=== PATIENT | female | born 1955 | race Caucasian/White ===

== ENCOUNTER 2016-10-06 07:49 | Day surgery (SDC) | payer BC ==
[2016-10-04 14:40] VITALS: BMI 23.4
[~2016-10-06 07:49] MED LIST: LACTATED RINGERS 1,000 ML IV SCH
[2016-10-06 08:09] VITALS: TEMP 99
[2016-10-06] MEDS ORDERED: LIDOCAINE 1% 20 ML VIAL (10MG/ML) FOR IV START INTRADERMA ONE (08:13)
[2016-10-06] MEDS ORDERED: PROPOFOL 10 MG/ML 20 ML VIAL IV ONE (08:44)
--- NOTE | 2016-10-06 09:11 | P.PCN ---
Date of Procedure: 10/06/16 Preoperative Diagnosis: Postoperative Diagnosis: Procedure(s) Performed: BRIEF HISTORY: Patient is a 60-year-old pleasant female, scheduled for an elective colonoscopy as a part of screening for colorectal neoplasia. PROCEDURE PERFORMED: Colonoscopy. PREOPERATIVE DIAGNOSIS: Screening for colon cancer. IV sedation per Anesthesia. PROCEDURE: After informed consent was obtained, the patient, was brought into the endoscopy unit. IV sedation was administered by Anesthesia under continuous monitoring. Digital rectal examination was normal. Initially the Olympus CF- 160 flexible video colonoscope was then inserted in the rectum, gradually advanced into the cecum without any difficulty. Careful examination was performed as the scope was gradually being withdrawn. Ileocecal valve and the appendiceal orifice were visualized and appeared normal. Prep was excellent. Mucosa of the cecum, ascending colon, transverse colon, descending colon, sigmoid colon, and rectum appeared normal. Scattered sigmoidal diverticulosis seen. Retroflexion was performed in the rectum and no lesions were seen. The patient tolerated the procedure well. IMPRESSION: Normal-appearing colon from rectum to cecum with no evidence of colorectal neoplasia. Scattered sigmoid diverticulosis. RECOMMENDATIONS: Findings of this examination were discussed with the patient as well as a family. She was advised to have a repeat screening colonoscopy in 10 years. Implants: Indications for Procedure: Operative Findings: Description of Procedure:
[2016-10-06 09:26] VITALS: BP 137/74; PULSE 71; RESP 16
== END 2016-10-06 09:39 | disposition home or self-care (01) ==
LOC: ORWHC2ENDO 07:49
PROVIDERS: ATTEND Internal Medicine Gastroenterology
DX: Z12.11 Encounter for screening for malignant neoplasm of colon (principal); K57.30 Diverticulosis of large intestine without perforation or abscess without bleeding; I10 Essential (primary) hypertension; J45.909 Unspecified asthma, uncomplicated; F32.9 Major depressive disorder, single episode, unspecified; Z79.899 Other long term (current) drug therapy
CPT/HCPCS: J2704; G0121; 45378

== ENCOUNTER → 2017-01-01 | Outpatient (CLI) | payer BC ==
--- NOTE | 2017-01-01 19:59 | BD ---
EXAMINATION TYPE: MG DEXA axial skeleton. DATE OF EXAM: 01/01/2017 COMPARISON: NONE CLINICAL HISTORY: 61-year-old female postmenopausal screening without HRT Height: 59.5 IN Weight: 122 LBS FRAX RISK QUESTIONS: Alcohol (3 or more units per day): NO Family History (Parent hip fracture): NO Glucocorticoids (More than 3mos): NO (Ex: prednisone, prednisolone, methylprednisolone, dexamethasone, and hydrocortisone). History of Fracture in Adulthood: NO Secondary Osteoporosis: 1. Type 1 Diabetes: NO 2. Hyperthyroidism: NO 3. Menopause before 45: YES AGE 37 4. Malnutrition: NO 5. Chronic liver disease: NO Rheumatoid Arthritis: NO Current Tobacco Use: NO RISK FACTORS HISTORY OF: Active: YES Diet low in dairy products/other sources of calcium: YES Postmenopausal woman: AGE 37 MEDICATIONS: Additional Medications: CALAN, INHALERS ADVAIR AND PROAIR, CELEXA, EXAM MEASUREMENTS: Bone mineral densitometry was performed using the [email or web address] System. Bone mineral density as measured about the Lumbar spine is: ----- L1-L4(G/cm2): 1.126 T Score Values are as follows: ----- L2: -0.5 ----- L3: -0.7 ----- L4: -0.2 ----- L1-L4: -0.4 Bone mineral density BASELINE Bone mineral density about the R hip (g/cm2): 0.709 Bone mineral density about the L hip (g/cm2): 0.715 T Score values are as follows: -----R Neck: -2.4 -----L Neck: -2.3 -----R Total: -2.1 -----L Total: -1.7 Bone mineral density BASELINE IMPRESSION: Osteopenia (T Score between -2.5 and -1 as noted by T score values There is slightly increased risk of fracture and the patient may be considered for treatment. Re-Screen 2-5 years. NOTE: T-SCORE=SD OF THE YOUNG ADULT MEAN.
--- NOTE | 2017-01-03 09:50 | MM ---
Reason for exam: screening (asymptomatic). Last mammogram was performed 1 year and 2 months ago. History: Patient is postmenopausal. Benign right mammotome panel of the right breast, November 04, 2004. Benign stereotactic core biopsy of the left breast, September 01, 2002. Took hormonal contraceptives for 10 years. Physical Findings: A clinical breast exam by your physician is recommended on an annual basis and results should be correlated with mammographic findings. MG Screening Mammo w CAD Bilateral CC and MLO view(s) were taken. Prior study comparison: November 15, 2015, bilateral MG screening mammo w CAD. October 27, 2014, bilateral MG screening mammo w CAD. The breast tissue is heterogeneously dense. This may lower the sensitivity of mammography. Previous mammotome biopsy in the right and left breast. There is chronic nodularity in the left breast. Regional calcifications 8 o'clock right with clip are unchanged. Course calcifications just anteriorly are increasing. ASSESSMENT: Incomplete: need additional imaging evaluation, BI-RAD 0 RECOMMENDATION: Special view mammogram of the right breast. If lesion persists on supplemental views, image directed ultrasound is recommended. [facility] will attempt to contact patient to return for supplemental views and ultrasound if indicated.
== END | disposition home or self-care (01) ==
LOC: RADMAMWWP 13:51
PROVIDERS: ATTEND Internal Medicine
DX: Z12.31 Encounter for screening mammogram for malignant neoplasm of breast (principal); M85.852 Other specified disorders of bone density and structure, left thigh; M85.851 Other specified disorders of bone density and structure, right thigh
CPT/HCPCS: 77080; G0202

== ENCOUNTER → 2017-01-04 | Outpatient (CLI) | payer BC ==
--- NOTE | 2017-01-04 14:22 | MM ---
Reason for exam: additional evaluation requested from abnormal screening. Last mammogram was performed less than 1 month ago. History: Patient is postmenopausal. Benign right mammotome panel of the right breast, November 04, 2004. Benign stereotactic core biopsy of the left breast, September 01, 2002. Took hormonal contraceptives for 10 years. Physical Findings: Nurse did not find any significant physical abnormalities on exam. MG Work Up Mamm w CAD RT CC with magnification, ML with magnification, and ML view(s) were taken of the right breast. Prior study comparison: January 01, 2017, bilateral MG screening mammo w CAD. November 15, 2015, bilateral MG screening mammo w CAD. The breast tissue is heterogeneously dense. This may lower the sensitivity of mammography. Course and round loosely grouped calcifications in the upper outer quadrant were present to some extent back to 2010. The increasing calcifications have a similar morphology and a benign etiology is favored at this time. A 6 month follow up is recommended. These results were verbally communicated with the patient and result sheet given to the patient on 01/04/17. ASSESSMENT: Probably benign, BI-RAD 3 RECOMMENDATION: Follow-up diagnostic mammogram of the right breast in 6 months.
== END | disposition home or self-care (01) ==
LOC: RADMAMWWP 12:52
PROVIDERS: ATTEND Internal Medicine
DX: R92.8 Other abnormal and inconclusive findings on diagnostic imaging of breast (principal)

== ENCOUNTER → 2017-07-12 | Outpatient (CLI) | payer BC ==
--- NOTE | 2017-07-12 14:07 | MM ---
Reason for exam: follow-up at short interval from prior study. Last mammogram was performed 6 months ago. History: Patient is postmenopausal. Benign right mammotome panel of the right breast, November 04, 2004. Benign stereotactic core biopsy of the left breast, September 01, 2002. Took hormonal contraceptives for 10 years. Physical Findings: Nurse did not find any significant physical abnormalities on exam. MG Diagnostic Mammo RT w CAD CC and MLO view(s) were taken of the right breast. Prior study comparison: January 04, 2017, right breast MG work up mamm w CAD RT. January 01, 2017, bilateral MG screening mammo w CAD. The breast tissue is heterogeneously dense. This may lower the sensitivity of mammography. Stable scattered calcifications in the right breast. There is no discrete abnormality. No significant new findings when compared with previous films. These results were verbally communicated with the patient and result sheet given to the patient on 07/12/17. ASSESSMENT: Benign, BI-RAD 2 RECOMMENDATION: Return to routine screening mammogram schedule for both breasts. Back on schedule.
== END | disposition home or self-care (01) ==
LOC: RADMAMWWP 12:48
PROVIDERS: ATTEND Internal Medicine
DX: R92.8 Other abnormal and inconclusive findings on diagnostic imaging of breast (principal)
CPT/HCPCS: 77065

== ENCOUNTER → 2017-12-18 | Outpatient (CLI) | payer BC ==
[2017-12-18 09:56] LABS: HCT 44.1 % (34.0-46.0); HGB 14.4 gm/dL (11.4-16.0); MCH 32.8 pg (25.0-35.0); MCHC 32.7 g/dL (31.0-37.0); MCV 100.1 fL (80.0-100.0); Mean Platelet Volume 6.5; Platelet Count 210 k/uL (150-450); RBC 4.41 m/uL (3.80-5.40); RDW 11.9 % (11.5-15.5); WBC 6.5 k/uL (3.8-10.6)
[2017-12-18 17:44] LABS: Albumin 4.2 g/dL (3.80-4.90); Albumin/Globulin Ratio 1.62 (1.20-2.10); Calcium 8.9 mg/dL (8.7-10.3); Globulin 2.6 g/dL (2.1-3.7); LDL Cholesterol,Calculated 69.2 mg/dL (0.0-131.0); Potassium 4.4 mmol/L (3.5-5.5); Total Bilirubin 0.7 mg/dL (0.2-1.2); Total Protein 6.8 g/dL (6.2-8.2); VLDL Calculation 12.8 mg/dL (5.00-40.00)
== END | disposition home or self-care (01) ==
LOC: LABWHC1 09:12
PROVIDERS: ATTEND Internal Medicine
DX: I10 Essential (primary) hypertension (principal); E78.5 Hyperlipidemia, unspecified; J45.909 Unspecified asthma, uncomplicated
CPT/HCPCS: 36415; 80053; 80061; 85027

== ENCOUNTER → 2018-07-30 | Outpatient (CLI) | payer BC ==
[2018-07-30 16:36] LABS: African American GFR (CKD) 108.4 (60.0-200.0); Albumin 3.9 g/dL (3.80-4.90); Albumin/Globulin Ratio 1.34 (1.60-3.17); Anion Gap 9.8 mmol/L (4.00-12.00); BUN/Creat Ratio 12.86 Ratio (12.00-20.00); Calcium 9.1 mg/dL (8.7-10.3); Carbon Dioxide 24.2 mmol/L (21.6-31.8); Globulin 2.9 g/dL (1.6-3.3); Potassium 4.1 mmol/L (3.5-5.5); Total Bilirubin 0.8 mg/dL (0.3-1.2); Total Protein 6.8 g/dL (6.2-8.2)
== END | disposition home or self-care (01) ==
LOC: LABWHC1 08:54
PROVIDERS: ATTEND Internal Medicine
DX: E78.5 Hyperlipidemia, unspecified (principal); I10 Essential (primary) hypertension
CPT/HCPCS: 36415; 80053; 80061

== ENCOUNTER → 2018-09-11 | Outpatient (CLI) | payer BC ==
[2018-09-11 09:12] VITALS: BP 137/80; PULSE 74; RESP 16; TEMP 98.4; BMI 23.2
--- NOTE | 2018-09-11 09:58 | P.HPOB ---
History of Present Illness H&P Date: 09/11/18 Chief Complaint: The patient is here for her routine gynecologic exam and ma mmogram. This is a 62-year-old with an LMP of 1992. The patient is here to establish with this office. She previously sought Dr. Mattson for her exams. Her last pelvic exam was about 10 years ago. She is status post STEFAN LSO for benign reasons. She is without gynecologic complaints. She has not been sexually active for several years. Review of Systems The patient has lost 4 pounds over the last year. She denies respiratory, cardiac, or G.I. problems. Past Medical History Past Medical History: Asthma, Hypertension Additional Past Medical History / Comment(s): Sciatica and osteopenia. Seasonal allergies. PAST [employer] HISTORY: treated for chlamydia as a young adult. No other Hx of STDs. STEFAN LSO for endometriosis. History of Any Multi-Drug Resistant Organisms: None Reported Past Surgical History: Back Surgery, Hysterectomy Additional Past Surgical History / Comment(s): COLONOSCOPY 2019(2nd, next 10yrs). STEFAN LSO 1992. Multiple breast biopsies. Past Anesthesia/Blood Transfusion Reactions: No Reported Reaction Past Psychological History: Depression Smoking Status: Former smoker Past Alcohol Use History: Occasional Additional Past Alcohol Use History / Comment(s): QUIT SMOKING 1996 Past Drug Use History: None Reported Additional History: She is a and is not sexually active. 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 - Past Family History Brother(s) Family Medical History: Cancer Additional Family Medical History / Comment(s): Brain and liver cancer. Father Family Medical History: Myocardial Infarction ([place]) Mother Family Medical History: No Reported History Additional Family Medical History / Comment(s): Maternal grandfather had colon cancer. Maternal grandmother had ovarian cancer. Medications and Allergies Home Medications Medication Instructions Recorded Confirmed Type Albuterol Sulfate [Proair Hfa] 1 puff INHALATION DIRECTED PRN 12/27/13 09/11/18 History Fluticasone/Salmeterol [Advair 1 puff INHALATION BID 12/27/13 09/11/18 History 250-50 Diskus] Verapamil Sr [Isoptin Sr] 180 mg PO HS 12/27/13 09/11/18 History Citalopram Hydrobromide 20 mg PO DAILY 10/04/16 09/11/18 History [Citalopram HBr] Cetirizine HCl [Zyrtec] 10 mg PO DAILY 09/11/18 09/11/18 History Allergies Allergy/AdvReac Type Severity Reaction Status Date / Time No Known Allergies Allergy Verified 09/11/18 09:05 Exam Vital Signs Temp Pulse Resp BP Pulse Ox 09/11/18 09:07 98.4 F 74 16 137/80 96 Intake and Output 09/10/18 09/11/18 09/11/18 22:59 06:59 14:59 Other: Weight 53.977 kg Height 5'0", weight 119 pounds, BMI 23.2. This is a well-developed well-nourished white female who is alert and oriented times 3 in no acute distress. HEENT: Within normal limits. NECK: Supple without mass or thyromegaly. CHEST AND LUNGS: Clear to auscultation. HEART: Regular rate and rhythm. BREASTS: Are without mass or discharge. AXILLARY EXAM: Negative for adenopathy. BACK: Negative for CVA tenderness. ABDOMEN: Soft, nontender, without palpable masses. PELVIC EXAM: External genitalia appears normal with mild to moderate atrophy. Vagina appears normal with mild to moderate atrophy. There is no evidence of prolapse. Bimanual examination is negative for mass or tenderness. RECTAL EXAM: Rectovaginal exam is negative for mass or tenderness and is negative for occult blood. EXTREMITIES: Nontender. IMPRESSION: 1. 62-year-old menopausal female status post STEFAN LSO for benign reasons, with normal gynecologic exam. 2. History of osteopenia. PLAN: 1. Pap smears have been discontinued. 2. Self breast awareness was discussed with the patient. 3. Screening mammogram will be done today. 4. Osteoporosis prevention was discussed. I have stressed the importance of adequate calcium, vitamin D and regular exercise. Recommended amounts of calcium and vitamin D were also discussed. I reviewed her last bone density test with the patient done on 01/01/2017. We will plan on repeating the bone density testing in one year. 5. She was advised to return in one year for her annual well woman exam.
--- NOTE | 2018-09-12 10:19 | MM ---
Reason for exam: screening (asymptomatic). Last mammogram was performed 1 year and 2 months ago. History: Patient is postmenopausal. Benign right mammotome panel of the right breast, November 04, 2004. Benign stereotactic core biopsy of the left breast, September 01, 2002. Took hormonal contraceptives for 10 years. Physical Findings: A clinical breast exam by your physician is recommended on an annual basis and results should be correlated with mammographic findings. MG Screening Mammo w CAD Bilateral CC and MLO view(s) were taken. Prior study comparison: July 12, 2017, right breast MG diagnostic mammo RT w CAD. January 04, 2017, right breast MG work up mamm w CAD RT. The breast tissue is heterogeneously dense. This may lower the sensitivity of mammography. Finding #1: There is a 9 mm equal density (isodense), obscured mass in the upper outer quadrant of the left breast. Finding #2: There are typically benign calcifications in both breasts. Previous mammotome biopsy in the right and left breast. ASSESSMENT: Incomplete: need additional imaging evaluation, BI-RAD 0 RECOMMENDATION: Special view mammogram of the left breast. If lesion persists on supplemental views, image directed ultrasound is recommended. [facility] will attempt to contact patient to return for supplemental views and ultrasound if indicated.
== END | disposition home or self-care (01) ==
LOC: WWCWWP 08:35
PROVIDERS: ATTEND Obstetrics & Gynecology
DX: Z12.31 Encounter for screening mammogram for malignant neoplasm of breast (principal)
CPT/HCPCS: 77067

== ENCOUNTER → 2018-09-24 | Outpatient (CLI) | payer BC ==
--- NOTE | 2018-09-24 10:17 | MM ---
Reason for exam: additional evaluation requested from abnormal screening. Last mammogram was performed less than 1 month ago. History: Patient is postmenopausal. Benign right mammotome panel of the right breast, November 04, 2004. Benign stereotactic core biopsy of the left breast, September 01, 2002. Took hormonal contraceptives for 10 years. Physical Findings: Nurse did not find any significant physical abnormalities on exam. MG Work Up Mamm w CAD LT Spot compression CC, spot compression ML, and ML view(s) were taken of the left breast. Prior study comparison: September 11, 2018, bilateral MG screening mammo w CAD. July 12, 2017, right breast MG diagnostic mammo RT w CAD. The breast tissue is heterogeneously dense. This may lower the sensitivity of mammography. No distinct lesion persists on additional views. These results were verbally communicated with the patient and result sheet given to the patient on 09/24/18. ASSESSMENT: Benign, BI-RAD 2 RECOMMENDATION: Return to routine screening mammogram schedule for both breasts.
== END | disposition home or self-care (01) ==
LOC: RADMAMWWP 08:51
PROVIDERS: ATTEND Obstetrics & Gynecology
DX: R92.8 Other abnormal and inconclusive findings on diagnostic imaging of breast (principal)
CPT/HCPCS: 77065

== ENCOUNTER → 2019-10-20 | Outpatient (CLI) | payer BC ==
--- NOTE | 2019-10-21 19:25 | BD ---
EXAMINATION TYPE: Axial Bone Density DATE OF EXAM: 10/20/2019 COMPARISON: NONE CLINICAL HISTORY: 63-year-old female with disorder of bone. Postmenopausal screening Height: 5 FT Weight: 119 FRAX RISK QUESTIONS: Alcohol (3 or more units per day): NO Family History (Parent hip fracture): NO Glucocorticoids (More than 3mos): NO (Ex: prednisone, prednisolone, methylprednisolone, dexamethasone, and hydrocortisone). History of Fracture in Adulthood: NO Secondary Osteoporosis: 1. Type 1 Diabetes: NO 2. Hyperthyroidism: NO 3. Menopause before 45: YES 4. Malnutrition: NO 5. Chronic liver disease: NO Rheumatoid Arthritis: NO Current Tobacco Use: NO RISK FACTORS HISTORY OF: Family History of Osteoporosis: NO Active: YES Postmenopausal woman: PART HYST AGE 37 SYMPTOMS BEFORE AGE 46 MEDICATIONS: Additional Medications: BLOOD PRESSURE MEDS, ASTHMA MEDS Additional History: EXAM MEASUREMENTS: Bone mineral densitometry was performed using the [employer] System. Bone mineral density as measured about the Lumbar spine is: ----- L1-L4(G/cm2): 1.113 T Score Values are as follows: ----- L2: -0.8 ----- L3: -0.5 ----- L4: -0.2 ----- L1-L4: -0.6 Bone mineral density has: DECREASED -0.2 % since study of: 2016 Bone mineral density about the R hip (g/cm2): 0.670 Bone mineral density about the L hip (g/cm2): 0.689 T Score values are as follows: -----R Neck: -2.6 -----L Neck: -2.5 -----R Total: -2.3 -----L Total: -2.1 Bone mineral density has: DECREASED -4.8 % since study of: 2017 IMPRESSION: Osteoporosis (T Score less than -2.5). There is increased fracture risk and therapy is usually indicated based on age. Re-Screen 1-2 years. NOTE: T-SCORE=SD OF THE YOUNG ADULT MEAN.
--- NOTE | 2019-10-22 11:02 | MM ---
Reason for exam: screening (asymptomatic). Last mammogram was performed 1 year and 1 month ago. History: Patient is postmenopausal. Benign right mammotome panel of the right breast, November 04, 2004. Benign stereotactic core biopsy of the left breast, September 01, 2002. Took hormonal contraceptives for 10 years. Physical Findings: A clinical breast exam by your physician is recommended on an annual basis and results should be correlated with mammographic findings. MG 3D Screening Mammo W/Cad Bilateral CC and MLO view(s) were taken. Prior study comparison: September 24, 2018, left breast MG work up mamm w CAD LT. September 11, 2018, bilateral MG screening mammo w CAD. Previous mammotome biopsy in the left breast. There is chronic nodularity in the left breast. Stable grouped punctate calcifications with clip right upper outer quadrant and course dystrophic calcifications just anteriorly. Benign vascular calcifications bilaterally. No significant changes when compared with prior studies. ASSESSMENT: Benign, BI-RAD 2 RECOMMENDATION: Routine screening mammogram of both breasts in 1 year.
== END | disposition home or self-care (01) ==
LOC: RADMAMWWP 14:47
PROVIDERS: ATTEND Internal Medicine
DX: Z12.31 Encounter for screening mammogram for malignant neoplasm of breast (principal); M81.0 Age-related osteoporosis without current pathological fracture
CPT/HCPCS: 77063; 77067; 77080

== ENCOUNTER → 2020-12-03 | Outpatient (CLI) | payer BC ==
--- NOTE | 2020-12-07 08:08 | MM ---
Reason for exam: screening (asymptomatic). Last mammogram was performed 1 year and 1 month ago. History: Patient is postmenopausal. Benign right mammotome panel of the right breast, November 04, 2004. Benign stereotactic core biopsy of the left breast, September 01, 2002. Took hormonal contraceptives for 10 years. Physical Findings: A clinical breast exam by your physician is recommended on an annual basis and results should be correlated with mammographic findings. MG 3D Screening Mammo W/Cad Bilateral CC and MLO view(s) were taken. Prior study comparison: October 20, 2019, bilateral MG 3d screening mammo w/cad. September 24, 2018, left breast MG work up mamm w CAD LT. September 11, 2018, bilateral MG screening mammo w CAD. January 01, 2017, bilateral MG screening mammo w CAD. There are scattered fibroglandular densities. Previous mammotome biopsy in the left breast. Regional punctate calcifications redemonstrated lateral right breast with microclip from prior biopsy. Stable course calcifications anterior right breast. No significant changes when compared with prior studies. ASSESSMENT: Benign, BI-RAD 2 RECOMMENDATION: Routine screening mammogram of both breasts in 1 year.
== END | disposition home or self-care (01) ==
LOC: RADMAMWWP 15:02
PROVIDERS: ATTEND Internal Medicine
DX: Z12.31 Encounter for screening mammogram for malignant neoplasm of breast (principal)
CPT/HCPCS: 77063; 77067

== ENCOUNTER → 2021-06-18 | Outpatient (CLI) | payer BC ==
[2021-06-18 11:13] LABS: HCT 41.8 % (37.2-46.3); HGB 14.3 g/dL (12.0-15.0); MCH 33.5 pg (27.0-32.0); MCHC 34.2 g/dL (32.0-37.0); MCV 97.9 fL (80.0-97.0); Mean Platelet Volume 9.1 fL (9.5-12.2); NRBC Per 100 WBC 0 /100 WBCS (0.0-0.0); Platelet Count 205 X 10*3/uL (140-440); RBC 4.27 X 10*6/uL (4.10-5.20); RDW 11.7 % (11.5-14.5); WBC 7.88 X 10*3/uL (4.50-10.00)
[2021-06-18 11:39] LABS: ALT 59 U/L (8-44); AST 67 U/L (13-35); African American GFR (CKD) 111.6 (60.0-200.0); Albumin 4.1 g/dL (3.8-4.9); Albumin/Globulin Ratio 1.32 (1.60-3.17); Alkaline Phosphatase 77 U/L (41-126); BUN/Creat Ratio 13.17 Ratio (12.00-20.00); Blood Urea Nitrogen 7.9 mg/dL (9.0-27.0); Calcium 8.9 mg/dL (8.7-10.3); Carbon Dioxide 25.8 mmol/L (20.0-27.5); Chloride 105 mmol/L (96-109); Chol/HDL Ratio 1.82 Ratio; Globulin 3.1 g/dL (1.6-3.3); Glucose 105 mg/dL (70-110); LDL Cholesterol,Calculated 62.2 mg/dL (0.0-131.0); Non-African American GFR(CKD) 96.3 (60.0-200.0); Potassium 4.1 mmol/L (3.5-5.5); Sodium 141 mmol/L (135-145); Total Protein 7.2 g/dL (6.2-8.2); VLDL Calculation 14.04 mg/dL (5.00-40.00)
[2021-06-18 22:32] LABS: Appearance,Urine Clear (Clear); Bilirubin,Urine Negative (Negative); Blood,Urine Negative (Negative); Color,Urine Yellow (Yellow); Ketones,Urine Negative (Negative); Nitrite,Urine Negative (Negative); PH, Urine 8.5 (5.0-8.0); Specific Gravity,Urine 1.009 (1.001-1.030)
[2021-06-18 22:48] LABS: Bacteria,Urine Trace /HPF (None Seen)
== END | disposition home or self-care (01) ==
LOC: LABWHC1 09:05
PROVIDERS: ATTEND Internal Medicine
DX: I10 Essential (primary) hypertension (principal); F32.A Depression, unspecified; M81.0 Age-related osteoporosis without current pathological fracture
CPT/HCPCS: 36415; 80053; 80061; 81001; 82306; 84443; 85027

== ENCOUNTER → 2021-07-06 | Outpatient (CLI) | payer BC | END | disposition home or self-care (01) | LOC: LABWHC1 11:39 | PROVIDERS: ATTEND Internal Medicine | DX: R76.8 Other specified abnormal immunological findings in serum (principal) | CPT/HCPCS: 36415; 87522 ==

== ENCOUNTER → 2021-07-22 | Outpatient (CLI) | payer BC ==
--- NOTE | 2021-07-22 08:46 | US ---
EXAMINATION TYPE: US abdomen complete DATE OF EXAM: 07/22/2021 COMPARISON: NONE CLINICAL HISTORY: R79.89 OTHER SPECIFIED ABN FINDING OF BLOOD. Elevated LFT's EXAM MEASUREMENTS: Liver Length: 13.5 cm Gallbladder Wall: 0.2 cm CBD: 0.4 cm Spleen: 7.8 cm Right Kidney: 10.2 x 4.4 x 4.5 cm Left Kidney: 9.5 x 5.0 x 4.2 cm Pancreas: visualized portions wnl, limited by overlying midline bowel gas Liver: wnl Gallbladder: multiple stones seen with largest measuring 1.0cm Evidence for sonographic May's sign: no CBD: wnl Spleen: wnl Right Kidney: wnl Left Kidney: wnl Upper IVC: wnl Abd Aorta: wnl The liver is homogenous. The intrahepatic portion of the IVC and proximal abdominal aorta are within normal limits. There is no evidence of cholelithiasis. Common bile duct is unremarkable. The visu alized portions of the pancreas are homogenous. The spleen is unremarkable. Kidneys are symmetric a nd free of hydronephrosis. No renal lesions are seen. IMPRESSION: Multiple gallstones noted.
== END | disposition home or self-care (01) ==
LOC: RADUSWWP 07:59
PROVIDERS: ATTEND Internal Medicine
DX: K80.20 Calculus of gallbladder without cholecystitis without obstruction (principal)
CPT/HCPCS: 76700

== ENCOUNTER → 2021-10-06 | Outpatient (CLI) | payer BC ==
[2021-10-06 18:02] LABS: HCT 37.8 % (37.2-46.3); HGB 13.1 g/dL (12.0-15.0); MCH 33.6 pg (27.0-32.0); MCHC 34.7 g/dL (32.0-37.0); MCV 96.9 fL (80.0-97.0); NRBC Per 100 WBC 0 /100 WBCS (0.0-0.0); Platelet Count 186 X 10*3/uL (140-440); RDW 11.9 % (11.5-14.5); WBC 7.97 X 10*3/uL (4.50-10.00)
[2021-10-06 19:06] LABS: African American GFR (CKD) 111.6 (60.0-200.0); Albumin 4.1 g/dL (3.8-4.9); Albumin/Globulin Ratio 1.41 (1.60-3.17); Anion Gap 10.5 mmol/L (10.00-18.00); BUN/Creat Ratio 12.33 Ratio (12.00-20.00); Blood Urea Nitrogen 7.4 mg/dL (9.0-27.0); Calcium 8.9 mg/dL (8.7-10.3); Carbon Dioxide 23.5 mmol/L (20.0-27.5); Globulin 2.9 g/dL (1.6-3.3); Non-African American GFR(CKD) 96.3 (60.0-200.0); Potassium 3.9 mmol/L (3.5-5.5); Total Bilirubin 0.5 mg/dL (0.30-1.20)
== END | disposition home or self-care (01) ==
LOC: LABWHC1 10:50
PROVIDERS: ATTEND Internal Medicine Gastroenterology
DX: B18.2 Chronic viral hepatitis C (principal)
CPT/HCPCS: 36415; 80053; 82105; 85027; 87522

== ENCOUNTER → 2022-01-31 | Outpatient (CLI) | payer BC ==
[2022-01-31 19:41] LABS: Hepatitis C IgG Antibody Reactive (Nonreactive)
[2022-01-31 19:58] LABS: African American GFR (CKD) 105.4 (60.0-200.0); Albumin 4.3 g/dL (3.8-4.9); Albumin/Globulin Ratio 1.65 (1.60-3.17); Anion Gap 17.5 mmol/L (10.00-18.00); Blood Urea Nitrogen 12.6 mg/dL (9.0-27.0); Calcium 9.1 mg/dL (8.7-10.3); Carbon Dioxide 18.5 mmol/L (20.0-27.5); Globulin 2.6 g/dL (1.6-3.3); Non-African American GFR(CKD) 90.9 (60.0-200.0); Total Bilirubin 0.4 mg/dL (0.30-1.20); Total Protein 6.9 g/dL (6.2-8.2)
== END | disposition home or self-care (01) ==
LOC: LABWHC1 13:20
PROVIDERS: ATTEND Internal Medicine Gastroenterology
DX: B18.2 Chronic viral hepatitis C (principal)
CPT/HCPCS: 36415; 80053; 82105; 86803

== ENCOUNTER → 2022-02-09 | Outpatient (CLI) | payer BC ==
[2022-02-10 00:42] LABS: HCT 40.1 % (37.2-46.3); HGB 13.1 g/dL (12.0-15.0); MCH 32.8 pg (27.0-32.0); MCHC 32.7 g/dL (32.0-37.0); MCV 100.5 fL (80.0-97.0); Mean Platelet Volume 9.5 fL (9.5-12.2); NRBC Per 100 WBC 0 /100 WBCS (0.0-0.0); Platelet Count 204 X 10*3/uL (140-440); RBC 3.99 X 10*6/uL (4.10-5.20); WBC 8.51 X 10*3/uL (4.50-10.00)
== END | disposition home or self-care (01) ==
LOC: LABWHC1 14:25
PROVIDERS: ATTEND Nurse Practitioner Family
DX: B18.2 Chronic viral hepatitis C (principal)
CPT/HCPCS: 36415; 85027; 87522

== ENCOUNTER → 2022-04-22 | Outpatient (CLI) | payer BC ==
--- NOTE | 2022-04-24 10:49 | MR ---
EXAMINATION TYPE: MR lumbar spine wo con DATE OF EXAM: 04/22/2022 11:10 AM COMPARISON: None CLINICAL INDICATION:Female, 66 years old with history of M51.16 INTERVERTEBRAL DISC DISORDERS W RADIC ULOPAT; Low back pain, stiffness TECHNIQUE: Multi planar, multi sequence imaging was performed utilizing: T1-weighted, T2-weighted, a nd turbo inversion recovery imaging of the lumbar spine. IV Contrast: None. FINDINGS: Alignment: The lumbar vertebral bodies have preserved heights and alignment. Cord: The conus medullaris and the distal spinal cord appear unremarkable with regards to their signa l intensity and morphology. Bones/Discs: Bone signal is within normal limits. No abnormal bony edema on inversion recovery sequen evi. Multilevel degenerative disc disease is noted and most pronounced at the L3-L5. Intervertebral d isc signal is maintained. T11-T12: Left central disc protrusion without significant spinal canal or neural foramen stenosis. T12-L1: No evidence of significant spinal canal stenosis or neural foraminal stenosis. L1-L2: No evidence of significant spinal canal stenosis or neural foraminal stenosis. L2-L3: Disc bulge and facet joint arthropathy result in mild spinal canal and mild bilateral neural f oraminal stenosis. L3-L4: Disc bulge and facet joint arthropathy result in mild spinal canal and mild bilateral neural f oraminal stenosis. L4-L5: Disc bulge and facet joint arthropathy result in mild spinal canal and mild bilateral neural f oraminal stenosis. L5-S1: The disc is rounded posterior morphology without significant spinal canal stenosis. Facet join t arthropathy with mild left neural foraminal stenosis. Other findings: None. IMPRESSION: 1. No definitive evidence of significant spinal canal stenosis. 2. T11-T12 left central disc protrusion without significant spinal canal stenosis. Neural foramen ar e patent. 3. Mild disc degeneration with associated osteoarthritic changes.
== END | disposition home or self-care (01) ==
LOC: RADMRIMAIN 10:29
PROVIDERS: ATTEND Orthopaedic Surgery Orthopaedic Surgery of the Spine
DX: M51.16 Intervertebral disc disorders with radiculopathy, lumbar region (principal); M51.14 Intervertebral disc disorders with radiculopathy, thoracic region; M48.061 Spinal stenosis, lumbar region without neurogenic claudication; M47.26 Other spondylosis with radiculopathy, lumbar region; M50.322 Other cervical disc degeneration at C5-C6 level; M50.323 Other cervical disc degeneration at C6-C7 level; R53.1 Weakness
CPT/HCPCS: 72148

== ENCOUNTER → 2022-06-20 | Outpatient (CLI) | payer BC ==
--- NOTE | 2022-06-20 19:10 | BD ---
EXAMINATION TYPE: Axial Bone Density DATE OF EXAM: 06/20/2022 CLINICAL HISTORY: 66 years old Female. ICD-10 CODE: M81.0 AGE-RELATED OSTEOPOROSIS Height: 59.25 Weight: 113 FRAX RISK QUESTIONS: Family History (Parent hip fracture): no History of Fracture in Adulthood: no Secondary Osteoporosis: yes 3. Menopause before 45: yes Rheumatoid Arthritis: no RISK FACTORS HISTORY OF: Family History of Osteoporosis: no Active: yes Diet low in dairy products/other sources of calcium: yes Postmenopausal woman: no Lost more than 2 inches in height since high school: no Frequent falls: no Poor Health: no MEDICATIONS: Additional Medications: yes hbp, inhaler, EXAM MEASUREMENTS: Bone mineral densitometry was performed using the [employer] System. Bone mineral density as measured about the Lumbar spine is: ----- L1-L4(G/cm2): 1.171 T Score Values are as follows: ----- L1: -0.6 ----- L2: -0.6 ----- L3: -0.1 ----- L4: 0.7 ----- L1-L4: -0.1 Z Score Values are as follows: ----- L1: 1.5 ----- L2: 1.5 ----- L3: 1.9 ----- L4: 2.8 ----- L1-L4: 2.0 Bone mineral density has: Increased 5.2% since study of: 10/20/2019 Bone mineral density about the R hip (g/cm2): 0.783 Bone mineral density about the L hip (g/cm2): 0.767 T Score values are as follows: -----R Neck: -2.5 -----L Neck: -2.4 -----R Total: -1.8 -----L Total: -1.9 Z Score values are as follows: -----R Neck: -0.7 -----L Neck: -0.6 -----R Total: -0.2 -----L Total: -0.4 Bone mineral density has: Increased 5.3% since study of: 10/20/2019 FRAX%s: The graph provided illustrates a 12.8% chance for a major osteoporotic fx and a 2.9% chance f or the hips probability for fx in 10 years time. IMPRESSION: Osteoporosis (T Score less than -2.5). There is increased fracture risk and therapy is usually indicated based on age. Re-Screen 1-2 years. NOTE: T-SCORE=SD OF THE YOUNG ADULT MEAN.
== END | disposition home or self-care (01) ==
LOC: RADBDWWP 09:09
PROVIDERS: ATTEND Family Medicine
DX: M81.0 Age-related osteoporosis without current pathological fracture (principal); M85.89 Other specified disorders of bone density and structure, multiple sites; Z78.0 Asymptomatic menopausal state
CPT/HCPCS: 77080

== ENCOUNTER → 2022-08-01 | Outpatient (CLI) | payer BC ==
--- NOTE | 2022-08-01 15:04 | US ---
EXAMINATION TYPE: US venous doppler duplex LE LT DATE OF EXAM: 08/01/2022 2:54 PM COMPARISON: Prior US 2013. CLINICAL INDICATION: Female, 66 years old with history of I80.9 PHLEBITIS AND THROMBOPHLEBITIS; Pt st ates left leg pain and swelling SIDE PERFORMED: Left TECHNIQUE: The lower extremity deep venous system is examined utilizing real time linear array sonog bentley with graded compression, doppler sonography and color-flow sonography. VESSELS IMAGED: Common Femoral Vein Deep Femoral Vein Greater Saphenous Vein * Femoral Vein Popliteal Vein Small Saphenous Vein * Proximal Calf Veins (* superficial vessels) Left Leg: Negative for DVT Results called to Earlene at Dr's office at time of exam Grayscale, color doppler, spectral doppler imaging performed of the deep veins of the left lower extr emity. There is normal flow, compressibility, vascular waveforms. IMPRESSION: No US evidence for acute DVT in the left lower extremity. No significant change from pr ior US.
== END | disposition home or self-care (01) ==
LOC: RADUSWWP 14:30
PROVIDERS: ATTEND Orthopaedic Surgery
DX: I80.3 Phlebitis and thrombophlebitis of lower extremities, unspecified (principal); S83.92XD Sprain of unspecified site of left knee, subsequent encounter; M11.262 Other chondrocalcinosis, left knee; M17.12 Unilateral primary osteoarthritis, left knee; M23.307 Other meniscus derangements, unspecified meniscus, left knee; M23.8X2 Other internal derangements of left knee; R60.9 Edema, unspecified; X58.XXXD Exposure to other specified factors, subsequent encounter

== ENCOUNTER 2022-08-03 08:58 | Emergency (ER) | payer BC ==
[2022-08-03] MEDS ORDERED: KETOROLAC 15 MG/ML 1 ML VIAL IVP STA (09:26)
[2022-08-03] MEDS ORDERED: ONDANSETRON 4 MG/2 ML VIAL IVP STA (09:26)
[2022-08-03] MEDS ORDERED: HYDROmorphone 0.5 MG/0.5 ML SYRINGE IVP STA (09:26)
[2022-08-03 09:55] LABS: Basophils % (A) 0 %; Eosinophils # (A) 0.2 k/uL (0-0.7); Eosinophils % (A) 2 %; HCT 36.5 % (34.0-46.0); HGB 12.6 gm/dL (11.4-16.0); Lymphocytes # (A) 2.3 k/uL (1.0-4.8); Lymphocytes % (A) 24 %; MCH 32.8 pg (25.0-35.0); MCHC 34.5 g/dL (31.0-37.0); MCV 95.1 fL (80.0-100.0); Mean Platelet Volume 7.1; Monocytes % (A) 10 %; Neutrophils # (A) 6.1 k/uL (1.3-7.7); Neutrophils % (A) 61 %; Platelet Count 283 k/uL (150-450); RBC 3.84 m/uL (3.80-5.40); RDW 12.3 % (11.5-15.5); WBC 9.9 k/uL (3.8-10.6)
--- NOTE | 2022-08-03 10:00 | ED ---
Lower Extremity Injury HPI - General Chief Complaint: Extremity Injury, Lower Stated Complaint: Left leg swelling Time Seen by Provider: 08/03/22 09:01 Source: patient, RN notes reviewed Mode of arrival: wheelchair Limitations: no limitations - History of Present Illness Initial Comments: 66-year-old female presents emergency Department chief complaint of left leg pain and swelling. Patient's been having issues with her left leg and which she had a fall she did follow-up with orthopedics at a time she fell directly onto her left knee x-rays showed some arthritic changes. Patient was feeling better started having issues again patient went to Dr. mae was office a few days ago had repeat x-ray which is very similar did have the inspiration and which they state is clear and did not concerns for infection. Patient did have swelling of her left knee down her leg into her foot and ankle. She was sent for outpatient ultrasound which negative for DVT. Patient was plan worsening pain to her left foot and ankle she has constant pain but is worse with movement they did discuss possibility of pseudogout with orthopedics. Patient's had no f ever but complaint of some night sweats. Patient is here with family regarding some information. - Related Data Home Medications Medication Instructions Recorded Confirmed Albuterol Sulfate [Proair Hfa] 1 puff INHALATION DIRECTED PRN 12/27/13 09/11/18 Fluticasone Propion/Salmeterol 1 puff INHALATION BID 12/27/13 09/11/18 [Advair 250-50 Diskus] Verapamil Sr [Isoptin Sr] 180 mg PO HS 12/27/13 09/11/18 Citalopram Hydrobromide 20 mg PO DAILY 10/04/16 09/11/18 [Citalopram HBr] Cetirizine HCl [Zyrtec] 10 mg PO DAILY 09/11/18 09/11/18 Allergies Allergy/AdvReac Type Severity Reaction Status Date / Time No Known Allergies Allergy Verified 08/03/22 08:59 Review of Systems ROS Statement: Those systems with pertinent positive or pertinent negative responses have been documented in the HPI. ROS Other: All systems not noted in ROS Statement are negative. Past Medical History Past Medical History: Asthma, Hypertension Additional Past Medical History / Comment(s): Sciatica and osteopenia. Seasonal allergies. 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 No other Hx of STDs. [facility] LSO for endometriosis. History of Any Multi-Drug Resistant Organisms: None Reported Past Surgical History: Back Surgery, Hysterectomy Additional Past Surgical History / Comment(s): COLONOSCOPY 2019(2nd, next 10yrs). [facility] LSO 1992. Multiple breast biopsies. Past Anesthesia/Blood Transfusion Reactions: No Reported Reaction Past Psychological History: Depression Past Alcohol Use History: Occasional Past Drug Use History: None Reported - Past Family History Brother(s) Family Medical History: Cancer Additional Family Medical History / Comment(s): Brain and liver cancer. Father Family Medical History: Myocardial Infarction ([place]) Mother Family Medical History: No Reported History Additional Family Medical History / Comment(s): Maternal grandfather had colon cancer. Maternal grandmother had ovarian cancer. General Exam Limitations: no limitations General appearance: alert, in no apparent distress Head exam: Present: atraumatic, normocephalic, normal inspection Eye exam: Present: normal appearance, PERRL, EOMI. Absent: scleral icterus, conjunctival injection, periorbital swelling ENT exam: Present: normal exam, normal oropharynx, mucous membranes moist Neck exam: Present: normal inspection. Absent: tenderness, meningismus, lymphadenopathy Respiratory exam: Present: normal lung sounds bilaterally. Absent: respiratory distress, wheezes, rales, rhonchi, stridor Cardiovascular Exam: Present: regular rate, normal rhythm, normal heart sounds. Absent: systolic murmur, diastolic murmur, rubs, gallop, clicks GI/Abdominal exam: Present: soft, normal bowel sounds. Absent: distended, tend erness, guarding, rebound, rigid Extremities exam: Present: other (Zoloft knee, tib-fib region left ankle and foot. There is tenderness palpation mild warmth is mild erythema noted there is a faint pulse, capillary refill less than 2 seconds.) Neurological exam: Present: alert Skin exam: Present: warm, dry, intact, normal color. Absent: rash Course Vital Signs 08/03/22 08/03/22 09:00 11:43 Temperature 99 F 98.1 F Pulse Rate 73 69 Respiratory 16 18 Rate Blood Pressure 139/78 171/25 O2 Sat by Pulse 95 94 L Oximetry Medical Decision Making - Medical Decision Making Was pt. sent in by a medical professional or institution (, PA, BATCH ROOM TECHNICIAN, urgent care, hospital, or group home...) When possible be specific @ -No Did you speak to anyone other than the patient for history (EMS, parent, family, police, friend...)? What history was obtained from this source @ -Daughter in the room for right cervical past medical history and current co mplaint Did you review nursing and triage notes (agree or disagree)? Why? @ -I reviewed and agree with nursing and triage notes Were old charts reviewed (outside hosp., previous admission, EMS record, old EKG, old radiological studies, urgent care reports/EKG's, group home records)? Report findings @ -No old charts were reviewed Differential Diagnosis (chest pain, altered mental status, abdominal pain women, abdominal pain men, vaginal bleeding, weakness, fever, dyspnea, syncope, headache, dizziness, GI bleed, back pain, seizure, CVA, palpatations, mental health, musculoskeletal)? @ -DVT, Fischer's cyst, cellulitis, foot, leg fracture, EKG interpreted by me (3pts min.). @ -None X-rays interpreted by me (1pt min.). @ -X-ray left foot, and left ankle no acute fracture dislocation soft tissue swelling noted CT interpreted by me (1pt min.). @ -None done U/S interpreted by me (1pt. min.). @ -Ultrasound left leg negative for acute DVT there is noted popliteal cyst What testing was considered but not performed or refused? (CT, X-rays, U/S, labs)? Why? @ -None What meds were considered but not given or refused? Why? @ -None Did you discuss the management of the patient with other professionals (professionals i.e. , PA, BATCH ROOM TECHNICIAN, lab, RT, psych nurse, social work faculty member, provider relations manager, teacher, fisheries technical officer, piano case and bench assembler)? Give summary @ -No Was smoking cessation discussed for >3mins.? @ -No Was critical care preformed (if so, how long)? @ -No Were there social determinants of health that impacted care today? How? (Tray elessness, low income, unemployed, alcoholism, drug addiction, transportation, low edu. Level, literacy, decrease access to med. care, shelter, rehab)? @ -No Was there de-escalation of care discussed even if they declined (Discuss DNR or withdrawal of care, Hospice)? DNR status @ -No What co-morbidities impacted this encounter? (DM, HTN, Smoking, COPD, CAD, Cancer, CVA, ARF, Chemo, Hep., AIDS, mental health diagnosis, sleep apnea, morbid obesity)? @ -None Was patient admitted / discharged? Hospital course, mention meds given and route, prescriptions, significant lab abnormalities, going to OR and other pertinent info. @ -Discharge patient has a proptosis the left leg there is no other acute injury on x-ray, laboratory studies show mild inflammatory marked changes synovial fluid reviewed showing no obvious signs of infection of the left knee patient has been followed by orthopedics for this. Undiagnosed new problem with uncertain prognosis? @ -No Drug Therapy requiring intensive monitoring for toxicity (Heparin, Nitro, Insulin, Cardizem)? @ -No Were any procedures done? @ -No Diagnosis/symptom? @ -Left knee popliteal cyst Acute, or Chronic, or Acute on Chronic? @ -Acute Uncomplicated (without systemic symptoms) or Complicated (systemic symptoms)? @ -uncomplicated Side effects of treatment? @ -No Exacerbation, Progression, or Severe Exacerbation? @ -No Poses a threat to life or bodily function? How? (Chest pain, [place], [place], pneumonia, PE, COPD, DKA, ARF, appy, cholecystitis, CVA, Diverticulitis, Homicidal, Suicidal, threat to staff... and all critical care pts) @ -No - Lab Data Result diagrams: 08/03/22 09:32 08/03/22 09:32 Lab Results 08/03/22 08/03/22 08/03/22 Range/Units 09:32 09:32 09:32 WBC 9.9 (3.8-10.6) k/uL RBC 3.84 (3.80-5.40) m/uL Hgb 12.6 (11.4-16.0) gm/dL Hct 36.5 (34.0-46.0) % MCV 95.1 (80.0-100.0) fL MCH 32.8 (25.0-35.0) pg MCHC 34.5 (31.0-37.0) g/dL RDW 12.3 (11.5-15.5) % Plt Count 283 (150-450) k/uL MPV 7.1 Neutrophils % 61 % Lymphocytes % 24 % Monocytes % 10 % Eosinophils % 2 % Basophils % 0 % Neutrophils # 6.1 (1.3-7.7) k/uL Lymphocytes # 2.3 (1.0-4.8) k/uL Monocytes # 1.0 (0-1.0) k/uL Eosinophils # 0.2 (0-0.7) k/uL Basophils # 0.0 (0-0.2) k/uL ESR 56 H (0-20) mm/hr D-Dimer 0.87 H (<0.60) mg/L FEU Sodium 133 L (137-145) mmol/L Potassium 3.9 (3.5-5.1) mmol/L Chloride 104 (98-107) mmol/L Carbon Dioxide 23 (22-30) mmol/L Anion Gap 6 mmol/L BUN 8 (7-17) mg/dL Creatinine 0.49 L (0.52-1.04) mg/dL Est GFR (CKD-EPI)AfAm >90 (>60 ml/min/1.73 sqM) Est GFR (CKD-EPI)NonAf >90 (>60 ml/min/1.73 sqM) Glucose 106 H (74-99) mg/dL Uric Acid 4.1 (3.7-7.4) mg/dL Calcium 8.4 (8.4-10.2) mg/dL Total Bilirubin 1.1 (0.2-1.3) mg/dL AST 27 (14-36) U/L ALT 17 (4-34) U/L Alkaline Phosphatase 63 (38-126) U/L C-Reactive Protein 3.3 H (<1.0) mg/dL Total Protein 6.6 (6.3-8.2) g/dL Albumin 3.6 (3.5-5.0) g/dL Disposition Clinical Impression: Synovial cyst of left popliteal space Disposition: HOME SELF-CARE Condition: Stable Instructions (If sedation given, give patient instructions): Fischer Cyst (ED) Additional Instructions: Please return to the Emergency Department if symptoms worsen or any other concerns. Is patient prescribed a controlled substance at d/c from ED?: No Referrals: Isaiah Chavez MD [Primary Care Provider] - 1-2 days Benja Johnson MD [Medical Doctor] - 1-2 days Time of Disposition: 11:29
--- NOTE | 2022-08-03 10:16 | XR ---
EXAMINATION TYPE: XR ankle complete LT, XR foot complete LT DATE OF EXAM: 08/03/2022 COMPARISON: Left fibula/tibia radiograph 12/28/2013 HISTORY: Pain, swelling, fall TECHNIQUE: Left foot and ankle are examined in AP, oblique, and lateral projections. FINDINGS: There is no evidence for fracture or dislocation. Ankle mortise is intact. Incidental symph alangism of the fifth digit. Mild soft tissue swelling of the ankle most pronounced over the lateral malleolus. Vascular sclerosis. IMPRESSION: 1. No evidence for acute fracture. 2. Mild soft tissue swelling of the ankle most pronounced over the lateral malleolus.
[2022-08-03 10:21] LABS: ALT 17 U/L (4-34); AST 27 U/L (14-36); African American GFR (CKD) >90 (>60 ml/min/1.73 sqM); Albumin 3.6 g/dL (3.5-5.0); Alkaline Phosphatase 63 U/L (38-126); Anion Gap 6 mmol/L; Blood Urea Nitrogen 8 mg/dL (7-17); C Reactive Protein 3.3 mg/dL (<1.0); Calcium 8.4 mg/dL (8.4-10.2); Carbon Dioxide 23 mmol/L (22-30); Chloride 104 mmol/L (98-107); Glucose 106 mg/dL (74-99); Non-African American GFR(CKD) >90 (>60 ml/min/1.73 sqM); Potassium 3.9 mmol/L (3.5-5.1); Sodium 133 mmol/L (137-145); Total Bilirubin 1.1 mg/dL (0.2-1.3); Total Protein 6.6 g/dL (6.3-8.2); Uric Acid 4.1 mg/dL (3.7-7.4)
[2022-08-03 10:52] LABS: Erythrocyte Sedimentation Rate 56 mm/hr (0-20)
--- NOTE | 2022-08-03 11:16 | US ---
EXAMINATION TYPE: US venous doppler duplex LE LT DATE OF EXAM: 08/03/2022 11:06 AM COMPARISON: US 08/01/22 CLINICAL INDICATION: Female, 66 years old with history of pain; No hx of DVT. Patient does not take b lood thinners. Pain x 4 weeks. SIDE PERFORMED: Left TECHNIQUE: The lower extremity deep venous system is examined utilizing real time linear array sonog bentley with graded compression, doppler sonography and color-flow sonography. VESSELS IMAGED: Common Femoral Vein Deep Femoral Vein Greater Saphenous Vein * Femoral Vein Popliteal Vein Small Saphenous Vein * Proximal Calf Veins (* superficial vessels) Left Leg: No evidence of DVT. Complex fluid seen medial popliteal area: 4.4 x 1.8 x 0.7 cm. No int ernal color flow or hyperemia identified. IMPRESSION: 1. No ultrasound evidence for deep venous thrombosis of the left lower extremity. 2. Complex fluid collection seen medially in the popliteal region which likely represents a complex p opliteal fossa cyst.
[2022-08-03 11:54] VITALS: BP 171/25; PULSE 69; RESP 18; TEMP 98.1
== END 2022-08-03 11:54 | disposition home or self-care (01) ==
LOC: EC 08:58
DX: M71.22 Synovial cyst of popliteal space [Baker], left knee (principal); I10 Essential (primary) hypertension; J45.909 Unspecified asthma, uncomplicated; F32.A Depression, unspecified; Z79.51 Long term (current) use of inhaled steroids; Z79.899 Other long term (current) drug therapy
CPT/HCPCS: 36415; 85379; 80053; 85652; 84550; 85025; 86140; 73610; 73630; 93971; 99284; 96374; J1885

== ENCOUNTER → 2022-08-16 | Outpatient (CLI) | payer BC ==
[2022-08-16 23:05] LABS: MCHC 33.3 d/dL (32.0-37.0); MCV 99.1 FL (80.0-97.0); NRBC Per 100 WBC 0 X 10*3/uL (0.00-0.01); Platelet Count 345 X 10*3/uL (140-440); RBC 4.24 X 10*6/uL (4.10-5.20); WBC 14.34 X 10*3/uL (4.50-10.00)
[2022-08-17 00:35] LABS: ALT 28 U/L (8-44); AST 19 U/L (13-35); Albumin 4.2 d/dL (3.8-4.9); Alkaline Phosphatase 59 U/L (41-126); Blood Urea Nitrogen 16.1 mg/dL (9.0-27.0); Calcium 9.5 mg/dL (8.7-10.3); Carbon Dioxide 21.7 mmol/L (21.6-31.8); Chloride 101 mmol/L (96-109); Globulin 2.8 d/dL (1.6-3.3); Glucose 109 mg/dL (70-110); Potassium 4.8 mmol/L (3.5-5.5); Sodium 138 mmol/L (135-145); Total Bilirubin 0.4 mg/dL (0.3-1.2)
== END | disposition home or self-care (01) ==
LOC: LABWHC1 13:03
PROVIDERS: ATTEND Internal Medicine Gastroenterology
DX: B18.2 Chronic viral hepatitis C (principal)
CPT/HCPCS: 36415; 80053; 82105; 85027; 87522

== ENCOUNTER → 2022-11-27 | Outpatient (CLI) | payer BC ==
[2022-11-27 20:24] LABS: HCT 42.6 % (37.2-46.3); HGB 14.2 d/dL (12.0-15.0); MCH 32.3 pg (27.0-32.0); MCHC 33.3 d/dL (32.0-37.0); Mean Platelet Volume 9.4 FL (9.5-12.2); NRBC Per 100 WBC 0 X 10*3/uL (0.00-0.01); Platelet Count 264 X 10*3/uL (140-440); RBC 4.39 X 10*6/uL (4.10-5.20); RDW 12.2 % (11.5-14.5); WBC 10.58 X 10*3/uL (4.50-10.00)
[2022-11-27 20:25] LABS: ALT 14 U/L (8-44); AST 23 U/L (13-35); Albumin 4.2 d/dL (3.8-4.9); Albumin/Globulin Ratio 1.68 Ratio (1.60-3.17); Alkaline Phosphatase 69 U/L (41-126); BUN/Creat Ratio 13.43 Ratio (12.00-20.00); Blood Urea Nitrogen 9.4 mg/dL (9.0-27.0); Calcium 9.1 mg/dL (8.7-10.3); Carbon Dioxide 24.5 mmol/L (21.6-31.8); Chloride 104 mmol/L (96-109); Globulin 2.5 d/dL (1.6-3.3); Glucose 85 mg/dL (70-110); Potassium 4.3 mmol/L (3.5-5.5); Sodium 139 mmol/L (135-145); Total Bilirubin 0.5 mg/dL (0.3-1.2); Total Protein 6.7 d/dL (6.2-8.2)
== END | disposition home or self-care (01) ==
LOC: LABWHC1 13:27
PROVIDERS: ATTEND Nurse Practitioner Family
DX: B18.2 Chronic viral hepatitis C (principal)
CPT/HCPCS: 36415; 80053; 82105; 85027; 87522

== ENCOUNTER → 2023-03-19 | Outpatient (CLI) | payer BC ==
--- NOTE | 2023-03-19 17:27 | US ---
EXAMINATION TYPE: US liver DATE OF EXAM: 03/19/2023 COMPARISON: NONE CLINICAL INDICATION: Female, 67 years old with history of R77.2 ABNORMALITY OF ALPHA-FETOPROTEIN; gal lstones TECHNIQUE: Multiple sonographic images of the right upper quadrant are obtained. FINDINGS: EXAM MEASUREMENTS: Liver Length: 12.5 cm Gallbladder Wall: .3 cm CBD: .4 cm Right Kidney: 10 x 3.9 x 3.7 cm Pancreas: Suboptimal visualization of the pancreatic tail. No gross abnormality. Liver: There appears to be subtle contour nodularity of the liver. No focal lesion. Gallbladder: A few dependent gallstones measuring up to 1 cm. No abnormal gallbladder distention, wa ll thickening, or surrounding fluid. Evidence for sonographic May's sign: no CBD: wnl Right Kidney: Cortical thinning. IMPRESSION: 1. There may be underlying cirrhosis. Further clinical correlation recommended. No focal liver lesion seen. 2. Cholelithiasis. No biliary duct dilatation. 3. There may be underlying chronic medical renal disease.
== END | disposition home or self-care (01) ==
LOC: RADUSWWP 08:13
PROVIDERS: ATTEND Internal Medicine Gastroenterology
DX: K80.20 Calculus of gallbladder without cholecystitis without obstruction (principal); R77.2 Abnormality of alphafetoprotein
CPT/HCPCS: 76705

== ENCOUNTER → 2023-03-19 | Outpatient (CLI) | payer BC ==
--- NOTE | 2023-03-19 09:07 | MM ---
Reason for Exam: Screening (asymptomatic). Last screening mammogram was performed 12 month(s) ago. Patient History: Menarche at age 13. First Full-Term at age 21. Left ovary removed at age 40. Hysterectomy at age 40. Postmenopausal. Patient used Hormonal Contraceptives for 10 years. 11/04/2004, Benign Core Biopsy on the right side. 09/01/2002, Benign Stereotactic Core Biopsy on the left side. Risk Values: Xiomara 5 year model risk: 2.3%. NCI Lifetime model risk: 8.0%. Prior Study Comparison: 10/20/2019 Bilateral Screening Mammogram, [facility]. 12/03/2020 Bilateral Screening Mammogram, [facility]. 03/14/2022 Bilateral MG 3D screening mammo w/cad, [facility]. Tissue Density: The breast tissue is heterogeneously dense. This may lower the sensitivity of mammography. Findings: Analyzed By CAD. Grouped calcifications in the right breast which are somewhat regional with biopsy clip in this region. Left breast biopsy clip also present. Benign-appearing calcifications. There is no suspicious group of microcalcifications or new suspicious mass. Overall Assessment: Benign, BI-RAD 2 Management: Screening Mammogram of both breasts in [address] [facility] will attempt to contact patient to return for supplemental views and ultrasound if indicated. Patient should continue monthly self-breast exams. A clinical breast exam by your physician is recommended on an annual basis. This exam should not preclude additional follow-up of suspicious palpable abnormalities. Note on Xiomara scores and lifetime risk: 1. A Xiomara score greater than 3% is considered moderate risk. If this is the case, consider specialist referral to assess eligibility for a risk reducing agent. 2. If overall lifetime risk for the development of breast cancer is 20% or higher, the patient may qualify for future screening with alternating mammogram and breast MRI. Electronically signed and approved by: Steve Gauthier DO
== END | disposition home or self-care (01) ==
LOC: RADMAMWWP 08:15
PROVIDERS: ATTEND Family Medicine
DX: Z12.31 Encounter for screening mammogram for malignant neoplasm of breast (principal); Z78.0 Asymptomatic menopausal state
CPT/HCPCS: 77063; 77067

== ENCOUNTER → 2023-06-09 | Outpatient (CLI) | payer BC ==
[2023-06-09 13:14] LABS: HCT 43.6 % (37.2-46.3); HGB 14.5 g/dL (12.0-15.0); MCH 31.3 pg (27.0-32.0); MCHC 33.3 g/dL (32.0-37.0); MCV 94.2 FL (80.0-97.0); Mean Platelet Volume 8.9 FL (9.5-12.2); NRBC Per 100 WBC 0 X 10*3/uL (0.00-0.01); Platelet Count 225 X 10*3/uL (140-440); RBC 4.63 X 10*6/uL (4.10-5.20); RDW 12.5 % (11.5-14.5); WBC 7.54 X 10*3/uL (4.50-10.00)
[2023-06-09 13:31] LABS: ALT 24 U/L (8-44); AST 32 U/L (13-35); Albumin 4.8 g/dL (3.8-4.9); Albumin/Globulin Ratio 1.92 Ratio (1.60-3.17); Alkaline Phosphatase 62 U/L (41-126); BUN/Creat Ratio 13.62 Ratio (12.00-20.00); Blood Urea Nitrogen 10.9 mg/dL (9.0-27.0); Calcium 9.3 mg/dL (8.7-10.3); Carbon Dioxide 23.9 mmol/L (21.6-31.8); Chloride 105 mmol/L (96-109); Globulin 2.5 g/dL (1.6-3.3); Glucose 99 mg/dL (70-110); Potassium 4.2 mmol/L (3.5-5.5); Sodium 142 mmol/L (135-145); Total Bilirubin 0.5 mg/dL (0.3-1.2); Total Protein 7.3 g/dL (6.2-8.2)
== END | disposition home or self-care (01) ==
LOC: LABWHC1 09:23
PROVIDERS: ATTEND Internal Medicine Gastroenterology
DX: B18.2 Chronic viral hepatitis C (principal)
CPT/HCPCS: 36415; 80053; 82105; 85027; 87522

== ENCOUNTER → 2024-04-03 | Outpatient (CLI) | payer MEDICARE ==
--- NOTE | 2024-04-03 10:51 | US ---
EXAMINATION TYPE: US liver DATE OF EXAM: 04/03/2024 COMPARISON: US CLINICAL INDICATION: Female, 68 years old with history of B18.2 CHRONIC VIRAL HEPATITIS C; Hep C TECHNIQUE: Grayscale and color Doppler imaging of the right upper quadrant was performed. FINDINGS: EXAM MEASUREMENTS: Liver Length: 11.2 cm Gallbladder Wall: 0.2 cm CBD: 0.4 cm Right Kidney: 10.1 x 4.0 x 4.3 cm ALUMNI RELATIONS OFFICER NOTES: Pancreas: wnl Liver: Lobulated contour, prominent caudate lobe Gallbladder: Multiple, mobile echogenic foci Evidence for sonographic May's sign: No CBD: wnl Right Kidney: No evidence of hydro IMPRESSION: 1. Clinical consideration for cirrhosis of the liver. 2. Cholelithiasis [facility], , 04/03/2024 10:49 AM
== END | disposition home or self-care (01) ==
LOC: RADUSWWP 10:08
PROVIDERS: ATTEND Internal Medicine Gastroenterology
DX: K80.20 Calculus of gallbladder without cholecystitis without obstruction (principal); B18.2 Chronic viral hepatitis C
CPT/HCPCS: 76705

== ENCOUNTER → 2024-05-31 | Outpatient (CLI) | payer MEDICARE ==
[2024-06-01 06:27] LABS: HGB 14.6 g/dL (12.0-15.0); MCH 32.4 pg (27.0-32.0); MCHC 33.2 g/dL (32.0-37.0); MCV 97.8 FL (80.0-97.0); Mean Platelet Volume 9.3 FL (9.5-12.2); NRBC Per 100 WBC 0 X 10*3/uL (0.00-0.01); Platelet Count 264 X 10*3/uL (140-440); RDW 12.3 % (11.5-14.5); WBC 7.22 X 10*3/uL (4.50-10.00)
[2024-06-01 09:22] LABS: ALT 26 U/L (8-44); AST 33 U/L (13-35); Albumin 4.7 g/dL (3.8-4.9); Albumin/Globulin Ratio 1.81 Ratio (1.60-3.17); Alkaline Phosphatase 60 U/L (41-126); Blood Urea Nitrogen 11.2 mg/dL (9.0-27.0); Calcium 9.4 mg/dL (8.7-10.3); Carbon Dioxide 23.9 mmol/L (21.6-31.8); Chloride 104 mmol/L (96-109); Globulin 2.6 g/dL (1.6-3.3); Glucose 84 mg/dL (70-110); Potassium 4.5 mmol/L (3.5-5.5); Sodium 140 mmol/L (135-145); Total Bilirubin 0.5 mg/dL (0.3-1.2); Total Protein 7.3 g/dL (6.2-8.2)
== END | disposition home or self-care (01) ==
LOC: LABWHC1 10:52
PROVIDERS: ATTEND Internal Medicine Gastroenterology
DX: R77.2 Abnormality of alphafetoprotein (principal); B18.2 Chronic viral hepatitis C
CPT/HCPCS: 36415; 80053; 82105; 85027; 87521

== ENCOUNTER → 2024-06-23 | Outpatient (CLI) | payer MEDICARE ==
--- NOTE | 2024-06-23 20:19 | BD ---
EXAMINATION TYPE: Axial Bone Density DATE OF EXAM: 06/23/2024 CLINICAL HISTORY: 68 years old Female. ICD-10 CODE: M81.0 MENOPAUSAL , Additional History: Height: 59 Weight: 115.0 FRAX RISK QUESTIONS: Alcohol (3 or more units per day): no Family History (Parent hip fracture): no Glucocorticoids (More than 3mos): no (Ex: prednisone, prednisolone, methylprednisolone, dexamethasone, and hydrocortisone). History of Fracture in Adulthood: no Secondary Osteoporosis: 1. Type 1 Diabetes: no 2. Hyperthyroidism: no 3. Menopause before 45: yes 4. Malnutrition: no 5. Chronic liver disease: no Rheumatoid Arthritis: no Current Tobacco Use: no RISK FACTORS HISTORY OF: Hip Fracture (Right/Left): no Spine Fracture: no History of Wrist Fracture: Surgery to Spine/Hip(right/left)/Wrist (right/left): no MEDICATIONS: Thyroid Medications: no Osteoporosis Medications: no EXAM MEASUREMENTS: Bone mineral densitometry was performed using the ADOP System. Bone mineral density as measured about the Lumbar spine is: ----- L1-L4(G/cm2): 1.161 T Score Values are as follows: ----- L1: -0.6 ----- L2: -0.2 ----- L3: -0.2 ----- L4: 0.1 ----- L1-L4: -0.2 Z Score Values are as follows: ----- L1: 1.5 ----- L2: 1.8 ----- L3: 1.9 ----- L4: 2.2 ----- L1-L4: 1.9 Bone mineral density has: decreased -0.9 % since study of: 06/20/2022 Bone mineral density about the R hip (g/cm2): 0.747 Bone mineral density about the L hip (g/cm2): 0.769 T Score values are as follows: -----R Neck: -2.2 -----L Neck: -1.9 -----R Total: -2.1 -----L Total: -1.9 Z Score values are as follows: -----R Neck: -0.4 -----L Neck: -0.1 -----R Total: -0.4 -----L Total: -0.3 Bone mineral density has: decreased -2.2 % since study of: 06/20/2022 FRAX%s: The graph provided illustrates a 12.2 % chance for a major osteoporotic fx and a 2.5% chance for the hips probability for fx in 10 years time. IMPRESSION: Osteopenia (T Score between -2.5 and -1). There is slightly increased risk of fracture and the patient may be considered for treatment. Re-Screen 2-5 years. NOTE: T-SCORE=SD OF THE YOUNG ADULT MEAN. [facility], , 06/23/2024 8:17 PM
== END | disposition home or self-care (01) ==
LOC: RADBDWWP 09:54
DX: M81.0 Age-related osteoporosis without current pathological fracture (principal); M85.89 Other specified disorders of bone density and structure, multiple sites; Z78.0 Asymptomatic menopausal state
CPT/HCPCS: 77080